=== PATIENT | male | born 1955 | race Caucasian/White ===

== ENCOUNTER 2016-11-07 11:23 | Day surgery (SDC) | payer OTHER ==
[~2016-11-07] VITALS: Ht 167.6 cm; Wt 113.6 kg
[~2016-11-07 11:23] MED LIST: ACTOS30 MG PO; ATORVASTATIN CA40 MG PO; CIPRO500 MG PO; CYMBALTA60 MG PO; FUROSEMIDE40 MG PO; Flexeril PO; HARVONI 90-4001 EACH PO; HUMALOG100 UNIT/1 SC; HUMALOG100 UNIT/2 SC; HUMALOG100 UNITS/ SC; HYDROXYZINE HCL25 MG PO; LANTUS 3 M100 UNITS/ SC; LANTUS 3 M100 UNITS1 SC; LEVOTHYROXINE100 MCG PO; LEVOTHYROXINE125 MCG PO; LO-DOSE ASPIRIN81 M2 PO; Lopressor PO; METOPROLOL SUCC50 MG PO; MORPHINE SULFAT15 M1 PO; NABUMETONE750 MG PO; NASONEX17 GM BOTH NARES; NEURONTIN100 MG PO; NORCO 5/3251 TABLET PO; NORVASC10 MG PO; NORVASC5 MG PO; PANTOPRAZOLE SO40 MG PO; PLAVIX75 MG PO; POTASSIUM CHLO20 ME1 PO; Percocet 7.5/325,End PO; RAMIPRIL10 MG PO; RAMIPRIL2.5 MG PO; ROPINIROLE HCL2 MG PO; Relafen PO; SIMVASTATIN40 MG PO; TOPIRAMATE25 MG PO; VITAMIN B-12250 MCG PO; ZETIA10 MG PO; ZOFRAN4 MG PO; Zocor PO
[2016-11-07 12:06] LABS: POINT-OF-CARE METER ID UU13113696
[2016-11-07 16:45] VITALS: BP 130/70
[2016-11-07 17:26] LABS: POINT-OF-CARE USER ID ENVKC36
[2016-11-07 19:40] VITALS: BP 123/60
[2016-11-08 00:22] VITALS: BP 112/64
[2016-11-08 04:15] VITALS: BP 142/73
[2016-11-08 07:06] VITALS: BP 145/80
[2016-11-08 08:17] LABS: POINT-OF-CARE USER ID ENVKC36
[2016-11-08 11:31] VITALS: BP 123/66
[2016-11-08 11:42] LABS: POINT-OF-CARE USER ID ENVKC36
== END 2016-11-08 13:36 | disposition home or self-care (01) ==
LOC: CATH 11:23 → 4EAST 14:51
PROVIDERS: Internal Medicine Cardiovascular Disease
DX: I50.9 Heart failure, unspecified (principal); I42.0 Dilated cardiomyopathy; I25.10 Atherosclerotic heart disease of native coronary artery without angina pectoris; Z98.61 Coronary angioplasty status; I25.2 Old myocardial infarction; I10 Essential (primary) hypertension; E78.5 Hyperlipidemia, unspecified; E11.9 Type 2 diabetes mellitus without complications; Z86.19 Personal history of other infectious and parasitic diseases; Z68.37 Body mass index [BMI] 37.0-37.9, adult; Z79.82 Long term (current) use of aspirin; Z79.4 Long term (current) use of insulin; Z88.8 Allergy status to other drugs, medicaments and biological substances; Z87.898 Personal history of other specified conditions
CPT/HCPCS: 71010; 82948; 93005; C1766; C1769; C1882; C1887; C1894; C1898; C1899; C1900; G0378; J0690; J1200; J1815; J2250; J3010; S0020

== ENCOUNTER 2018-05-08 12:37 | Day surgery (SDC) | payer OTHER ==
[~2018-05-08] VITALS: Ht 167.6 cm; Wt 122.5 kg
[~2018-05-08 12:37] MED LIST changes: +GABAPENTIN300 MG PO; +MYSOLINE50 MG PO; +TRESIBA FL100 UNIT/1 SC
[2018-05-08 13:35] VITALS: BP 187/87
[2018-05-08 17:08] VITALS: BP 183/81
[2018-05-08 18:04] VITALS: BP 183/85
== END 2018-05-08 18:15 | disposition home or self-care (01) ==
LOC: SDC 12:37
PROVIDERS: Orthopaedic Surgery Hand Surgery
DX: G56.21 Lesion of ulnar nerve, right upper limb (principal); G56.01 Carpal tunnel syndrome, right upper limb; I10 Essential (primary) hypertension; E11.9 Type 2 diabetes mellitus without complications; G47.30 Sleep apnea, unspecified; K21.9 Gastro-esophageal reflux disease without esophagitis; I25.2 Old myocardial infarction; Z95.0 Presence of cardiac pacemaker; Z95.5 Presence of coronary angioplasty implant and graft; Z79.82 Long term (current) use of aspirin; Z79.4 Long term (current) use of insulin
CPT/HCPCS: 82948; J0690; J1100; J1885; J2250; J2405; J3010; Q0175; S0020

== ENCOUNTER 2018-06-05 10:50 | Day surgery (SDC) | payer OTHER ==
[~2018-06-05] VITALS: Ht 167.6 cm; Wt 122.5 kg
[2018-06-05 11:36] VITALS: BP 150/66
[2018-06-05 15:22] VITALS: BP 173/71
[2018-06-05 16:11] VITALS: BP 173/81
== END 2018-06-05 16:20 | disposition home or self-care (01) ==
LOC: SDC 10:50
PROVIDERS: Orthopaedic Surgery Hand Surgery
DX: G56.02 Carpal tunnel syndrome, left upper limb (principal); G56.22 Lesion of ulnar nerve, left upper limb; I10 Essential (primary) hypertension; E11.9 Type 2 diabetes mellitus without complications; E03.9 Hypothyroidism, unspecified; I25.5 Ischemic cardiomyopathy; G47.30 Sleep apnea, unspecified; B18.2 Chronic viral hepatitis C; K21.9 Gastro-esophageal reflux disease without esophagitis; Z87.891 Personal history of nicotine dependence; Z79.4 Long term (current) use of insulin; Z95.5 Presence of coronary angioplasty implant and graft; I25.10 Atherosclerotic heart disease of native coronary artery without angina pectoris; Z95.810 Presence of automatic (implantable) cardiac defibrillator; Z79.82 Long term (current) use of aspirin
CPT/HCPCS: 82948; J0330; J0690; J1170; J2250; J3010; S0020